=== PATIENT | female | born 2000 | race Caucasian/White ===

== ENCOUNTER 2024-04-24 09:10 | Outpatient (AMB) | payer BC, SELFPAY ==
[2024-04-24 09:13] VITALS: BP 110/74; PULSE 73; TEMP 36.6; O2SAT 100; BMI 30.2
--- NOTE | 2024-04-24 09:13 | AM.OFFWIN_ITS ---
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 She states her last Tdap was in 2006. 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 I will order a TSpot test as well today but she states it has to be within 3 months of her starting which is not until September. She denies any joint pain, fevers, night sweats, shortness of breath, heart palpitations, GI issues, shortness of breath with exertion, chest pain or chest pain with exertion, headaches. She states she only has anxiety and depression which she is currently taking fluoxetine daily and hydroxyzine as needed. She tells me she has never been hospitalized. [facility] Social History Patient Tobacco Use Status: Never used Tobacco Review of Systems Const All systems reviewed & are unremarkable except as noted in HPI and below Physical Exam Vital Signs: Last Vital Signs Temp 97.9 F 04/24/24 09:13 Pulse 73 04/24/24 09:13 BP 110/74 04/24/24 09:13 Pulse Ox 100 04/24/24 09:13 BMI result Body Mass Index 30.2 Const General: cooperative, healthy appearing, comfortable, no acute distress and well developed Orientation/consciousness: patient oriented x3 Limitations: no limitations HEENT Head: Yes normal to inspection Ears: hearing grossly normal bilaterally General nose exam: Normal external nose present Face and sinus: Yes normal facial exam Eyes General: appearance normal, both eyes and all related structures Neck Neck: Yes normal visual inspection and Yes full ROM Resp Effort & Inspection: normal respiratory effort and able to speak in complete sentences Auscultation: clear to auscultation bilaterally Cardio Rate: regular rate Rhythm: regular rhythm Heart sounds: normal S1 and S2 GI Inspection: Yes normal to inspection Palpation (GI): Soft to palpation and nontender Skin General skin exam: no rashes or lesions noted Neuro General: patient oriented x3 Extrem Other: 5/5 strength upper extremities and lower extremities, sensation intact upper and lower bilateral extremities, 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 I did order a T spot but it may before she needs it to get done, 90 days prior to 09/2024, we can reorder it if necessary. (2) Physical exam: Code(s): Z00.00 - Encounter for general adult medical examination without abnormal findings Plan: see above Plan see above Orders: Orders TDaP Immunization Today Z23 - Encounter for immunization T Spot TB Today Z00.00 - Encounter for general adult medical examination without abnormal findings Medications: New Boostrix Tdap (diphth,pertus(acell),tetanus) 0.5 mL IM ONCE 0.5 mL 0RF vaccine NS Z23 - Encounter for immunization Coding Level of Care Code Sports/Work/School Physical Diagnoses Need for Tdap vaccination Z23 Physical exam Z00.00
== END 2024-04-24 09:54 | disposition home or self-care (01) ==
PROVIDERS: Visit Provider Physician Assistant
DX: Z00.00 Encounter for general adult medical examination without abnormal findings (principal); Z23 Encounter for immunization

== ENCOUNTER → 2024-04-24 09:10 | Outpatient (BNVA) | payer BC, SELFPAY | PROVIDERS: Visit Provider Physician Assistant | DX: Z02.1 Encounter for pre-employment examination (principal); Z23 Encounter for immunization | CPT/HCPCS: 90471; 90715 ==